=== PATIENT | female | born 1975 | race Caucasian/White ===

== ENCOUNTER 2025-01-14 08:19 | Day surgery (SDC) | payer OTHER ==
[2025-01-10 08:36] VITALS: BMI 26.2
[2025-01-14] MEDS ORDERED: Famotidine/PF 20 mg/2ml Vial ONE (09:11)
[2025-01-14] MEDS ORDERED: Gabapentin 300 MG CAP ONE (09:11)
[2025-01-14] MEDS ORDERED: PROPOFOL 20 ML ONE (09:15)
[2025-01-14] MEDS ORDERED: Lidocaine 1% PF 5 ML VIAL ONE (09:17)
[2025-01-14] MEDS ORDERED: Rocuronium Bromide 10 MG/ML (10ML VIAL) ONE (09:17)
[2025-01-14] MEDS ORDERED: KETAMINE 100 MG/ML (5ML VIAL) ONE (09:26)
[2025-01-14] MEDS ORDERED: Bupivacaine HCl 0.5%/Epinephrine 1:200,000/PF 30 ml Vial ONE (09:26)
[2025-01-14] MEDS ORDERED: CEFAZOLIN 2 GM VIAL ONE (10:04)
[2025-01-14] MEDS ORDERED: Ondansetron PF 4 MG/2 ML Vial ONE ×2 (11:05→14:17)
[2025-01-14] MEDS ORDERED: SUGAMMADEX SODIUM 200 MG/2 ML VIAL ONE (11:44)
[2025-01-14] MEDS ORDERED: HYDROcodone/Acetaminophen 5/325 mg Tablet ONE (13:24)
== END 2025-01-14 17:57 | disposition home or self-care (01) ==
LOC: CSHSDC 08:19
PROVIDERS: ATTEND Student in an Organized Health Care Education/Training Program
DX: D25.1 Intramural leiomyoma of uterus (principal); N80.03 Adenomyosis of the uterus; N72 Inflammatory disease of cervix uteri; I47.19 Other supraventricular tachycardia; Z90.49 Acquired absence of other specified parts of digestive tract; Z79.899 Other long term (current) drug therapy
CPT/HCPCS: 88307; J1100; J1308; J2250; J2405; J2550; J2704; J3010; S2900